=== PATIENT | female | born 1945 | race Caucasian/White ===

== ENCOUNTER 2019-06-07 05:20 | Inpatient (IN) ==
[2019-06-07] MEDS ORDERED: cefOXitin 1,000 MG in SYRINGE 1 EACH IV ONE (06:00)
[2019-06-07] MEDS ORDERED: LIDOCAINE 1%/EPI INJ 20 ML VIAL ONE (06:28)
[2019-06-07] MEDS ORDERED: BUPIVACAINE MPF 0.25% 30 ML VIAL ONE (06:28)
[2019-06-07] MEDS ORDERED: TISSUE ADHESIVE 1 EACH APPLICATOR TOP ONE (06:28)
[2019-06-07] MEDS ORDERED: INDOCYANINE GREEN 25 MG VIAL IV ONE (06:28)
[2019-06-07] MEDS ORDERED: ACETAMINOPHEN 500 MG TABLET PO ONE (06:34)
[2019-06-07] MEDS ORDERED: FAMOTIDINE 20 MG TABLET PO ONE (06:34)
[2019-06-07] MEDS ORDERED: DIAZEPAM 5 MG TABLET PO ONE (06:34)
[2019-06-07] MEDS ORDERED: RANITIDINE 150 MG TABLET ONE (06:50)
[2019-06-07] MEDS ORDERED: ACETAMINOPHEN 500 MG TABLET ONE (06:50)
[2019-06-07] MEDS ORDERED: DIAZEPAM 5 MG TABLET ONE (06:50)
[2019-06-07] MEDS ORDERED: RANITIDINE 150 MG TABLET PO ONE (07:00)
[2019-06-07] MEDS ORDERED: LACTATED RINGERS 1,000 ML IV SCH (07:00)
[2019-06-07] MEDS ORDERED: PHENYLEPHRINE 1 MG/10 ML SYRINGE IV ONE ×2 (12:30→13:21)
[2019-06-07] MEDS ORDERED: PHENYLEPHRINE DRIP 20 MG/250 ML PREMIX IV ONE (12:30)
[2019-06-07] MEDS ORDERED: HYDROmorphone 2 MG/1 ML VIAL IV PRN (13:14)
[2019-06-07] MEDS ORDERED: ONDANSETRON 4 MG/2 ML VIAL IV PRN (13:14)
[2019-06-07] MEDS ORDERED: SEVOFLURANE 1 UNIT/15 MINUTE INH ONE (13:18)
[2019-06-07] MEDS ORDERED: LIDOCAINE 2% 5 ML VIAL ONE (13:19)
[2019-06-07] MEDS ORDERED: propofoL 200 MG/20 ML VIAL IV ONE (13:19)
[2019-06-07] MEDS ORDERED: fentaNYL 100 MCG/2 ML VIAL ONE (13:20)
[2019-06-07] MEDS ORDERED: GLYCOPYRROLATE 0.4 MG/2 ML VIAL ONE (13:20)
[2019-06-07] MEDS ORDERED: MIDAZOLAM 2 MG/2 ML VIAL ONE (13:20)
[2019-06-07] MEDS ORDERED: ePHEDrine 50 MG/ML AMP ONE (13:20)
[2019-06-07] MEDS ORDERED: DEXAMETHASONE 4 MG/1 ML VIAL ONE (13:20)
[2019-06-07] MEDS ORDERED: ROCURONIUM 100 MG/10 ML VIAL IV ONE (13:21)
[2019-06-07] MEDS ORDERED: NEOSTIGMINE 10 MG/10 ML VIAL ONE (13:21)
[2019-06-07] MEDS: DEXTROSE 5% LACTATED RINGERS 1,000 ML IV SCH ×2 (14:13→21:38)
[2019-06-07 14:47] LABS: Hematocrit 28.9 VOL% (35.7-47.0); Hemoglobin 8.8 GM/DL (12.0-16.0)
[2019-06-07] MEDS: HYDROmorphone 2 MG/1 ML VIAL IV PRN ×3 (15:20→21:38)
[2019-06-07] MEDS: cefOXitin 2,000 MG in SYRINGE 1 EACH IV SCH ×2 (17:03→23:05)
[2019-06-07 21:25] LABS: Hematocrit 26.6 VOL% (35.7-47.0); Hemoglobin 7.9 GM/DL (12.0-16.0)
[2019-06-07] MEDS: ALVIMOPAN 12 MG CAPSULE PO SCH (23:58)
[2019-06-08] MEDS: HYDROmorphone 2 MG/1 ML VIAL IV PRN ×3 (04:52→20:53)
[2019-06-08] MEDS: cefOXitin 2,000 MG in SYRINGE 1 EACH IV SCH (04:57)
[2019-06-08 06:18] LABS: Eosinophils # 0.2 10*3/uL (0.0-0.87); Eosinophils % 4.2 % (0.00-10.9); Hematocrit 25.4 VOL% (35.7-47.0); Hemoglobin 7.4 GM/DL (12.0-16.0); Immature Granulocytes % 0.2 %; Immature Granulocytes Absolute 0.01 #; Lymphocytes # 0.5 10*3/uL (1.4-4.0); Lymphocytes % 12.2 % (21.3-54.2); Mean Corpuscular HGB Conc 29.1 GM/DL (32-36); Mean Corpuscular Volume 112.4 FL (87-102); Mean Platelet Volume 9.6 FL (9.6-12.0); Monocytes % 9.9 % (1.7-12.7); Neutrophils % 73.5 % (38.7-73.9); Platelet Count 129 T/CUMM (130-400); Red Blood Count 2.26 MC/CUMM (3.8-5.5); Red Cell Distribution Width 13.5 % (9.3-17.3); White Blood Count 4.3 T/CUMM (4-12)
[2019-06-08] MEDS: DEXTROSE 5% LACTATED RINGERS 1,000 ML IV SCH ×3 (06:23→21:58)
[2019-06-08 06:38] LABS: Macrocytosis Slight
[2019-06-08 06:39] LABS: Ovalocytes Slight
[2019-06-08 06:40] LABS: Platelet Estimate Adequate
[2019-06-08 06:43] LABS: Alanine Aminotransferase 29 U/L (13-56); Albumin 2.1 G/DL (3.4-5.0); Alkaline Phosphatase 76 U/L (45-117); Aspartate Amino Transferase 41 U/L (0-37); Bilirubin,Total < 0.39 MG/DL (0.2-1.0); Blood Urea Nitrogen 17 MG/DL (7-18); Calcium 7.6 MG/DL (8.5-10.1); Estimated Glom Filtration Rate 26 ML/MIN; Glucose 113 MG/DL (74-106); Osmolality,Calculated 283.3 MOS/KG (273-304); Total Protein 4.7 G/DL (6.4-8.3)
[2019-06-08] MEDS: PANTOPRAZOLE 40 MG TABLET PO SCH (08:47)
[2019-06-08] MEDS: GABAPENTIN 600 MG TABLET PO SCH ×4 (08:47→20:54)
[2019-06-08] MEDS: ALVIMOPAN 12 MG CAPSULE PO SCH ×2 (08:47→20:54)
[2019-06-08] MEDS: CITALOPRAM 40 MG TABLET PO SCH (08:47)
[2019-06-08] MEDS ORDERED: ALBUTEROL 2.5 MG/3 ML NEB RESP TX PRN (11:00)
[2019-06-08 13:23] LABS: Hematocrit 25.4 VOL% (35.7-47.0); Hemoglobin 7.5 GM/DL (12.0-16.0)
[2019-06-09 05:31] LABS: Eosinophils # 0.3 10*3/uL (0.0-0.87); Eosinophils % 7.8 % (0.00-10.9); Hemoglobin 6.7 GM/DL (12.0-16.0); Immature Granulocytes % 0.3 %; Immature Granulocytes Absolute 0.01 #; Lymphocytes # 0.9 10*3/uL (1.4-4.0); Lymphocytes % 23.5 % (21.3-54.2); Mean Corpuscular HGB Conc 29.1 GM/DL (32-36); Mean Corpuscular Volume 114.4 FL (87-102); Neutrophils % 56.4 % (38.7-73.9); Platelet Count 122 T/CUMM (130-400); Red Blood Count 2.01 MC/CUMM (3.8-5.5); Red Cell Distribution Width 13.5 % (9.3-17.3); White Blood Count 3.7 T/CUMM (4-12)
[2019-06-09 05:45] LABS: Calcium 7.5 MG/DL (8.5-10.1); Osmolality,Calculated 291.6 MOS/KG (273-304)
[2019-06-09 06:34] LABS: Eosinophils 12 % (0-10); Lymphocytes 13 % (20-55); Platelet Estimate Normal; Segmented Neutrophils 68 % (50-85); Total Cells Counted 100
[2019-06-09] MEDS: DEXTROSE 5% LACTATED RINGERS 1,000 ML IV SCH (06:34)
[2019-06-09 06:35] LABS: Anisocytosis Slight; Macrocytosis 1+
[2019-06-09] MEDS: LEVOTHYROXINE 125 MCG TABLET PO SCH (06:36)
[2019-06-09] MEDS ORDERED: SODIUM CHLORIDE 0.9% 1,000 ML IV PRN (08:04)
[2019-06-09] MEDS: CITALOPRAM 40 MG TABLET PO SCH (09:58)
[2019-06-09] MEDS: GABAPENTIN 600 MG TABLET PO SCH ×4 (09:59→21:21)
[2019-06-09] MEDS: PANTOPRAZOLE 40 MG TABLET PO SCH (09:59)
[2019-06-09] MEDS: ALVIMOPAN 12 MG CAPSULE PO SCH ×2 (09:59→21:21)
[2019-06-09] MEDS: HYDROmorphone 2 MG/1 ML VIAL IV PRN ×3 (10:36→18:30)
[2019-06-10] MEDS: HYDROmorphone 2 MG/1 ML VIAL IV PRN ×2 (00:44→21:23)
[2019-06-10] MEDS: DEXTROSE 5% LACTATED RINGERS 1,000 ML IV SCH ×4 (02:58→17:34)
[2019-06-10 05:37] LABS: Hematocrit 30.5 VOL% (35.7-47.0); Hemoglobin 9.2 GM/DL (12.0-16.0)
[2019-06-10] MEDS: LEVOTHYROXINE 125 MCG TABLET PO SCH (06:18)
[2019-06-10] MEDS: PANTOPRAZOLE 40 MG TABLET PO SCH (09:16)
[2019-06-10] MEDS: GABAPENTIN 600 MG TABLET PO SCH ×4 (09:16→21:24)
[2019-06-10] MEDS: CITALOPRAM 40 MG TABLET PO SCH (09:16)
[2019-06-11] MEDS: LEVOTHYROXINE 125 MCG TABLET PO SCH (06:08)
[2019-06-11] MEDS: PANTOPRAZOLE 40 MG TABLET PO SCH (09:15)
[2019-06-11] MEDS: GABAPENTIN 600 MG TABLET PO SCH ×4 (09:15→22:32)
[2019-06-11] MEDS: CITALOPRAM 40 MG TABLET PO SCH (09:15)
[2019-06-11] MEDS: DEXTROSE 5% LACTATED RINGERS 1,000 ML IV SCH ×2 (09:21→13:25)
[2019-06-11] MEDS: ONDANSETRON 4 MG/2 ML VIAL IV PRN (11:15)
[2019-06-12] MEDS: DEXTROSE 5% LACTATED RINGERS 1,000 ML IV SCH ×2 (04:46→10:02)
[2019-06-12] MEDS: LEVOTHYROXINE 125 MCG TABLET PO SCH (06:31)
[2019-06-12 07:55] LABS: Basophils % 1.1 % (0.0-0.8); Eosinophils # 0.3 10*3/uL (0.0-0.87); Hematocrit 28.9 VOL% (35.7-47.0); Hemoglobin 8.7 GM/DL (12.0-16.0); Lymphocytes % 34.8 % (21.3-54.2); Mean Corpuscular HGB Conc 30.1 GM/DL (32-36); Mean Corpuscular Volume 106.3 FL (87-102); Mean Platelet Volume 9.7 FL (9.6-12.0); Monocytes % 13.2 % (1.7-12.7); Neutrophils % 39.9 % (38.7-73.9); Platelet Count 142 T/CUMM (130-400); Red Blood Count 2.72 MC/CUMM (3.8-5.5); Red Cell Distribution Width 14.2 % (9.3-17.3); White Blood Count 2.7 T/CUMM (4-12)
[2019-06-12] MEDS: CITALOPRAM 40 MG TABLET PO SCH (08:16)
[2019-06-12] MEDS: PANTOPRAZOLE 40 MG TABLET PO SCH (08:16)
[2019-06-12] MEDS: GABAPENTIN 600 MG TABLET PO SCH ×2 (08:16→13:43)
[2019-06-12 08:24] LABS: Anisocytosis Slight; Band Neutrophils 8 % (0-10); Eosinophils 11 % (0-10); Lymphocytes 34 % (20-55); Macrocytosis Slight; Platelet Estimate Adequate; Segmented Neutrophils 38 % (50-85); Total Cells Counted 100
[2019-06-12 08:25] LABS: Atypical Lymphocytes Few
[2019-06-12 08:41] VITALS: BP 149/64
[2019-06-12] MEDS: ONDANSETRON 4 MG/2 ML VIAL IV PRN (10:31)
== END 2019-06-12 13:25 | disposition home or self-care (01) | DRG 330 ==
LOC: N.OR 05:20 → N.SDSINP 05:21 → N.ICU 13:45 → N.3E 06-10 13:34
PROVIDERS: ADMIT Surgery; ATTEND Surgery

== ENCOUNTER 2019-06-29 19:05 | Inpatient (IN) ==
[2019-06-29] MEDS ORDERED: SODIUM CHLORIDE 0.9% 1,000 ML IV STA (19:37)
[2019-06-29 19:52] LABS: Basophils # 0.1 10*3/uL (0.0-0.2); Basophils % 0.5 % (0.0-0.8); Eosinophils # 0.6 10*3/uL (0.0-0.87); Eosinophils % 6.3 % (0.00-10.9); Hematocrit 30.1 VOL% (35.7-47.0); Hemoglobin 9.2 GM/DL (12.0-16.0); Immature Granulocytes % 0.7 %; Immature Granulocytes Absolute 0.07 #; Lymphocytes # 1.6 10*3/uL (1.4-4.0); Lymphocytes % 16.4 % (21.3-54.2); Mean Corpuscular HGB Conc 30.6 GM/DL (32-36); Mean Corpuscular Volume 105.2 FL (87-102); Mean Platelet Volume 10.4 FL (9.6-12.0); Neutrophils % 70.1 % (38.7-73.9); Platelet Count 245 T/CUMM (130-400); Red Blood Count 2.86 MC/CUMM (3.8-5.5); Red Cell Distribution Width 14.3 % (9.3-17.3); White Blood Count 9.6 T/CUMM (4-12)
[2019-06-29 20:00] LABS: Alanine Aminotransferase < 9 U/L (13-56); Albumin 1.7 G/DL (3.4-5.0); Alkaline Phosphatase 74 U/L (45-117); Aspartate Amino Transferase 15 U/L (0-37); Blood Urea Nitrogen 18 MG/DL (7-18); Calcium 7.3 MG/DL (8.5-10.1); Estimated Glom Filtration Rate 40 ML/MIN; Glucose 101 MG/DL (74-106); Osmolality,Calculated 278.5 MOS/KG (273-304); Total Protein 5.2 G/DL (6.4-8.3); Troponin I < 0.015 NG/ML (0.00-0.045)
[2019-06-29 20:31] LABS: PT Patient Result 10.6 SECS (9.6-12.2)
[2019-06-29 21:06] LABS: Apearance,Urine CLEAR (Clear); Bilirubin,Urine Negative (Negative); Blood, Urine Negative (Negative); Glucose,Urine (UA) Negative (Negative); Ketones,Urine Negative (Negative); Nitrite,Urine Negative (Negative); Protein,Urine Negative; Squamous Epithelial Cell,Urine Occasional /HPF (0-10); Urine Color Yellow (Yellow); Urine Specific Gravity 1.047 (1.001-1.035)
[2019-06-29] MEDS ORDERED: metroNIDAZOLE INJ 500 MG in PREMIX 1 EACH IV STA (21:13)
[2019-06-29] MEDS ORDERED: cefTRIAXone 1,000 MG in SODIUM CHLORIDE 0.9% 100 ML IV STA (21:13)
[2019-06-30] MEDS: HYDROmorphone 2 MG/1 ML VIAL IV PRN ×3 (00:33→20:19)
[2019-06-30] MEDS: cefOXitin 2,000 MG in SYRINGE 1 EACH IV SCH ×5 (02:32→20:12)
[2019-06-30 04:41] LABS: Basophils % 0.4 % (0.0-0.8); Eosinophils # 0.6 10*3/uL (0.0-0.87); Eosinophils % 7.1 % (0.00-10.9); Hematocrit 29.2 VOL% (35.7-47.0); Hemoglobin 8.8 GM/DL (12.0-16.0); Immature Granulocytes % 0.6 %; Immature Granulocytes Absolute 0.05 #; Lymphocytes # 1.6 10*3/uL (1.4-4.0); Lymphocytes % 17.5 % (21.3-54.2); Mean Corpuscular HGB Conc 30.1 GM/DL (32-36); Mean Corpuscular Volume 106.2 FL (87-102); Mean Platelet Volume 9.9 FL (9.6-12.0); Monocytes % 5.5 % (1.7-12.7); Neutrophils % 68.9 % (38.7-73.9); Platelet Count 244 T/CUMM (130-400); Red Blood Count 2.75 MC/CUMM (3.8-5.5); Red Cell Distribution Width 14.5 % (9.3-17.3); White Blood Count 8.9 T/CUMM (4-12)
[2019-06-30 05:15] LABS: Alanine Aminotransferase < 6 U/L (13-56); Albumin 1.6 G/DL (3.4-5.0); Alkaline Phosphatase 67 U/L (45-117); Aspartate Amino Transferase 12 U/L (0-37); Bilirubin,Total < 0.39 MG/DL (0.2-1.0); Blood Urea Nitrogen 16 MG/DL (7-18); Calcium 7.4 MG/DL (8.5-10.1); Estimated Glom Filtration Rate 48 ML/MIN; Glucose 96 MG/DL (74-106); Osmolality,Calculated 281.3 MOS/KG (273-304); Total Protein 4.8 G/DL (6.4-8.3)
[2019-06-30] MEDS: DEXTROSE 5% LACTATED RINGERS 1,000 ML IV SCH ×3 (07:01→14:23)
[2019-06-30] MEDS: PANTOPRAZOLE 40 MG TABLET PO SCH (09:02)
[2019-06-30] MEDS ORDERED: ALBUTEROL 2.5 MG/3 ML NEB RESP TX PRN (09:06)
[2019-06-30] MEDS ORDERED: DIAZEPAM 5 MG TABLET PO ONE (09:35)
[2019-06-30] MEDS: ENOXAPARIN 40 MG/0.4 ML SYRINGE SUBCUT SCH (16:39)
[2019-07-01] MEDS: DEXTROSE 5% LACTATED RINGERS 1,000 ML IV SCH ×4 (03:20→23:11)
[2019-07-01] MEDS: cefOXitin 2,000 MG in SYRINGE 1 EACH IV SCH ×4 (03:21→19:47)
[2019-07-01] MEDS: hydroCHLOROthiazide 25 MG TABLET PO SCH (08:37)
[2019-07-01] MEDS: amLODIPine 2.5 MG TABLET PO SCH (08:37)
[2019-07-01] MEDS: ASPIRIN EC 81 MG TABLET PO SCH (08:37)
[2019-07-01] MEDS: PANTOPRAZOLE 40 MG TABLET PO SCH (08:37)
[2019-07-01 08:44] LABS: Basophils % 0.3 % (0.0-0.8); Eosinophils # 0.8 10*3/uL (0.0-0.87); Hematocrit 30.1 VOL% (35.7-47.0); Hemoglobin 9.1 GM/DL (12.0-16.0); Immature Granulocytes % 0.6 %; Immature Granulocytes Absolute 0.06 #; Lymphocytes % 9.7 % (21.3-54.2); Mean Corpuscular HGB Conc 30.2 GM/DL (32-36); Mean Corpuscular Volume 105.6 FL (87-102); Mean Platelet Volume 9.5 FL (9.6-12.0); Monocytes % 5.5 % (1.7-12.7); Neutrophils % 76.9 % (38.7-73.9); Platelet Count 211 T/CUMM (130-400); Red Blood Count 2.85 MC/CUMM (3.8-5.5); Red Cell Distribution Width 14.2 % (9.3-17.3); White Blood Count 10.7 T/CUMM (4-12)
[2019-07-01 09:05] LABS: Calcium 7.7 MG/DL (8.5-10.1); Osmolality,Calculated 275.5 MOS/KG (273-304)
[2019-07-01] MEDS: ONDANSETRON 4 MG/2 ML VIAL IV PRN ×2 (12:42→19:48)
[2019-07-01] MEDS: ENOXAPARIN 40 MG/0.4 ML SYRINGE SUBCUT SCH (20:39)
[2019-07-02] MEDS: ONDANSETRON 4 MG/2 ML VIAL IV PRN ×4 (00:18→22:00)
[2019-07-02] MEDS: HYDROmorphone 2 MG/1 ML VIAL IV PRN ×3 (00:51→21:58)
[2019-07-02] MEDS: cefOXitin 2,000 MG in SYRINGE 1 EACH IV SCH ×4 (03:29→21:59)
[2019-07-02] MEDS: DEXTROSE 5% LACTATED RINGERS 1,000 ML IV SCH ×4 (05:09→23:48)
[2019-07-02 07:48] LABS: Basophils # 0.1 10*3/uL (0.0-0.2); Basophils % 0.6 % (0.0-0.8); Eosinophils # 0.7 10*3/uL (0.0-0.87); Eosinophils % 7.5 % (0.00-10.9); Hemoglobin 9.4 GM/DL (12.0-16.0); Immature Granulocytes % 0.4 %; Immature Granulocytes Absolute 0.04 #; Lymphocytes # 1.3 10*3/uL (1.4-4.0); Lymphocytes % 13.9 % (21.3-54.2); Mean Corpuscular HGB Conc 30.3 GM/DL (32-36); Mean Corpuscular Volume 105.4 FL (87-102); Mean Platelet Volume 9.9 FL (9.6-12.0); Monocytes % 6.8 % (1.7-12.7); Neutrophils % 70.8 % (38.7-73.9); Platelet Count 202 T/CUMM (130-400); Red Blood Count 2.94 MC/CUMM (3.8-5.5); Red Cell Distribution Width 14.2 % (9.3-17.3)
[2019-07-02] MEDS: amLODIPine 2.5 MG TABLET PO SCH (09:24)
[2019-07-02] MEDS: PANTOPRAZOLE 40 MG TABLET PO SCH (09:24)
[2019-07-02] MEDS: hydroCHLOROthiazide 25 MG TABLET PO SCH (09:24)
[2019-07-02] MEDS: ASPIRIN EC 81 MG TABLET PO SCH (09:24)
[2019-07-02] MEDS: ENOXAPARIN 40 MG/0.4 ML SYRINGE SUBCUT SCH (21:59)
[2019-07-03] MEDS: ONDANSETRON 4 MG/2 ML VIAL IV PRN ×3 (02:41→17:55)
[2019-07-03] MEDS: cefOXitin 2,000 MG in SYRINGE 1 EACH IV SCH ×4 (02:44→20:47)
[2019-07-03] MEDS ORDERED: PROMETHAZINE INJ 25 MG in SODIUM CHLORIDE 0.9% 50 ML IV PRN (07:53)
[2019-07-03] MEDS: hydroCHLOROthiazide 25 MG TABLET PO SCH (09:34)
[2019-07-03] MEDS: PANTOPRAZOLE 40 MG TABLET PO SCH (09:34)
[2019-07-03] MEDS: amLODIPine 2.5 MG TABLET PO SCH (09:34)
[2019-07-03] MEDS: ASPIRIN EC 81 MG TABLET PO SCH (09:34)
[2019-07-03] MEDS ORDERED: PROMETHAZINE 25 MG/1 ML VIAL IM PRN (10:50)
[2019-07-03] MEDS: PROMETHAZINE 25 MG/1 ML VIAL IM PRN ×2 (11:19→20:48)
[2019-07-03] MEDS: DEXTROSE 5% LACTATED RINGERS 1,000 ML IV SCH ×3 (11:19→23:26)
[2019-07-03] MEDS: ENOXAPARIN 40 MG/0.4 ML SYRINGE SUBCUT SCH (20:47)
[2019-07-04] MEDS: cefOXitin 2,000 MG in SYRINGE 1 EACH IV SCH ×4 (01:55→19:57)
[2019-07-04] MEDS: DEXTROSE 5% LACTATED RINGERS 1,000 ML IV SCH ×2 (05:42→14:20)
[2019-07-04] MEDS: amLODIPine 2.5 MG TABLET PO SCH (09:32)
[2019-07-04] MEDS: hydroCHLOROthiazide 25 MG TABLET PO SCH (09:32)
[2019-07-04] MEDS: PANTOPRAZOLE 40 MG TABLET PO SCH (09:32)
[2019-07-04] MEDS: ASPIRIN EC 81 MG TABLET PO SCH (09:32)
[2019-07-04] MEDS: HYDROmorphone 2 MG/1 ML VIAL IV PRN ×2 (09:34→19:59)
[2019-07-04] MEDS: PROMETHAZINE 25 MG/1 ML VIAL IM PRN ×2 (14:19→19:58)
[2019-07-04] MEDS: ENOXAPARIN 40 MG/0.4 ML SYRINGE SUBCUT SCH (20:23)
[2019-07-05] MEDS: DEXTROSE 5% LACTATED RINGERS 1,000 ML IV SCH ×4 (02:49→18:50)
[2019-07-05] MEDS: cefOXitin 2,000 MG in SYRINGE 1 EACH IV SCH ×4 (02:51→21:14)
[2019-07-05 05:42] LABS: Basophils # 0.1 10*3/uL (0.0-0.2); Basophils % 0.9 % (0.0-0.8); Eosinophils # 0.7 10*3/uL (0.0-0.87); Eosinophils % 8.7 % (0.00-10.9); Hematocrit 31.5 VOL% (35.7-47.0); Hemoglobin 9.6 GM/DL (12.0-16.0); Immature Granulocytes % 0.5 %; Immature Granulocytes Absolute 0.04 #; Lymphocytes # 1.4 10*3/uL (1.4-4.0); Lymphocytes % 17.7 % (21.3-54.2); Mean Corpuscular HGB Conc 30.5 GM/DL (32-36); Mean Corpuscular Volume 105.4 FL (87-102); Mean Platelet Volume 10.2 FL (9.6-12.0); Monocytes % 7.8 % (1.7-12.7); Neutrophils % 64.4 % (38.7-73.9); Platelet Count 211 T/CUMM (130-400); Red Blood Count 2.99 MC/CUMM (3.8-5.5); Red Cell Distribution Width 14.1 % (9.3-17.3); White Blood Count 7.8 T/CUMM (4-12)
[2019-07-05] MEDS: amLODIPine 2.5 MG TABLET PO SCH (09:40)
[2019-07-05] MEDS: PANTOPRAZOLE 40 MG TABLET PO SCH (09:40)
[2019-07-05] MEDS: hydroCHLOROthiazide 25 MG TABLET PO SCH (09:40)
[2019-07-05] MEDS: ASPIRIN EC 81 MG TABLET PO SCH (09:40)
[2019-07-05] MEDS: PROMETHAZINE 25 MG/1 ML VIAL IM PRN ×2 (10:45→21:14)
[2019-07-05] MEDS: ONDANSETRON 4 MG/2 ML VIAL IV PRN (13:44)
[2019-07-05] MEDS: HYDROmorphone 2 MG/1 ML VIAL IV PRN ×2 (13:54→21:14)
[2019-07-05] MEDS: ENOXAPARIN 40 MG/0.4 ML SYRINGE SUBCUT SCH (21:15)
[2019-07-06] MEDS: cefOXitin 2,000 MG in SYRINGE 1 EACH IV SCH ×4 (03:08→20:55)
[2019-07-06] MEDS: DEXTROSE 5% LACTATED RINGERS 1,000 ML IV SCH ×3 (03:09→20:50)
[2019-07-06] MEDS: ASPIRIN EC 81 MG TABLET PO SCH (09:35)
[2019-07-06] MEDS: hydroCHLOROthiazide 25 MG TABLET PO SCH (09:35)
[2019-07-06] MEDS: PROMETHAZINE 25 MG/1 ML VIAL IM PRN ×2 (09:35→17:24)
[2019-07-06] MEDS: PANTOPRAZOLE 40 MG TABLET PO SCH (09:35)
[2019-07-06] MEDS: amLODIPine 2.5 MG TABLET PO SCH (09:35)
[2019-07-06] MEDS: HYDROmorphone 2 MG/1 ML VIAL IV PRN ×2 (12:01→21:24)
[2019-07-06] MEDS: ONDANSETRON 4 MG/2 ML VIAL IV PRN ×2 (12:01→21:46)
[2019-07-06] MEDS: ENOXAPARIN 40 MG/0.4 ML SYRINGE SUBCUT SCH (20:55)
[2019-07-07] MEDS: HYDROmorphone 2 MG/1 ML VIAL IV PRN ×3 (02:55→21:07)
[2019-07-07] MEDS: ONDANSETRON 4 MG/2 ML VIAL IV PRN ×3 (02:58→21:09)
[2019-07-07] MEDS: cefOXitin 2,000 MG in SYRINGE 1 EACH IV SCH ×3 (03:07→15:29)
[2019-07-07] MEDS: DEXTROSE 5% LACTATED RINGERS 1,000 ML IV SCH ×2 (07:34→10:56)
[2019-07-07] MEDS: hydroCHLOROthiazide 25 MG TABLET PO SCH (09:42)
[2019-07-07] MEDS: ASPIRIN EC 81 MG TABLET PO SCH (09:42)
[2019-07-07] MEDS: amLODIPine 2.5 MG TABLET PO SCH (09:42)
[2019-07-07] MEDS: PANTOPRAZOLE 40 MG TABLET PO SCH (09:42)
[2019-07-07] MEDS: PROMETHAZINE 25 MG/1 ML VIAL IM PRN (15:35)
[2019-07-07] MEDS: ENOXAPARIN 40 MG/0.4 ML SYRINGE SUBCUT SCH (21:09)
[2019-07-08] MEDS: DEXTROSE 5% LACTATED RINGERS 1,000 ML IV SCH ×5 (02:37→18:15)
[2019-07-08] MEDS: ONDANSETRON 4 MG/2 ML VIAL IV PRN ×3 (05:10→17:35)
[2019-07-08] MEDS: HYDROmorphone 2 MG/1 ML VIAL IV PRN ×3 (05:27→18:31)
[2019-07-08] MEDS: hydroCHLOROthiazide 25 MG TABLET PO SCH (09:23)
[2019-07-08] MEDS: amLODIPine 2.5 MG TABLET PO SCH (09:23)
[2019-07-08] MEDS: PROMETHAZINE 25 MG/1 ML VIAL IM PRN ×2 (09:23→18:37)
[2019-07-08] MEDS: PANTOPRAZOLE 40 MG TABLET PO SCH (09:23)
[2019-07-08] MEDS: ASPIRIN EC 81 MG TABLET PO SCH (09:23)
[2019-07-08] MEDS: ENOXAPARIN 40 MG/0.4 ML SYRINGE SUBCUT SCH (20:58)
[2019-07-09] MEDS: DEXTROSE 5% LACTATED RINGERS 1,000 ML IV SCH ×3 (02:04→18:46)
[2019-07-09] MEDS: ONDANSETRON 4 MG/2 ML VIAL IV PRN ×3 (06:29→23:38)
[2019-07-09] MEDS: HYDROmorphone 2 MG/1 ML VIAL IV PRN ×4 (06:32→23:39)
[2019-07-09 08:17] LABS: Basophils % 0.8 % (0.0-0.8); Eosinophils # 0.3 10*3/uL (0.0-0.87); Eosinophils % 6.5 % (0.00-10.9); Hematocrit 30.8 VOL% (35.7-47.0); Hemoglobin 9.4 GM/DL (12.0-16.0); Immature Granulocytes % 0.6 %; Immature Granulocytes Absolute 0.03 #; Lymphocytes # 1.1 10*3/uL (1.4-4.0); Lymphocytes % 20.1 % (21.3-54.2); Mean Corpuscular HGB Conc 30.5 GM/DL (32-36); Mean Corpuscular Volume 104.8 FL (87-102); Mean Platelet Volume 9.6 FL (9.6-12.0); Monocytes % 5.9 % (1.7-12.7); Neutrophils % 66.1 % (38.7-73.9); Platelet Count 181 T/CUMM (130-400); Red Blood Count 2.94 MC/CUMM (3.8-5.5); Red Cell Distribution Width 14.5 % (9.3-17.3); White Blood Count 5.3 T/CUMM (4-12)
[2019-07-09 08:38] LABS: Albumin 1.6 G/DL (3.4-5.0); Bilirubin,Total 0.8 MG/DL (0.2-1.0); Calcium 8.2 MG/DL (8.5-10.1); Osmolality,Calculated 272.7 MOS/KG (273-304); Total Protein 5.2 G/DL (6.4-8.3)
[2019-07-09] MEDS: ASPIRIN EC 81 MG TABLET PO SCH (09:12)
[2019-07-09] MEDS: PANTOPRAZOLE 40 MG TABLET PO SCH (09:13)
[2019-07-09] MEDS: cefOXitin 1,000 MG in SYRINGE 1 EACH IV SCH ×3 (09:13→21:35)
[2019-07-09] MEDS: hydroCHLOROthiazide 25 MG TABLET PO SCH (09:13)
[2019-07-09] MEDS: amLODIPine 2.5 MG TABLET PO SCH (09:13)
[2019-07-09] MEDS: ENOXAPARIN 40 MG/0.4 ML SYRINGE SUBCUT SCH (21:33)
[2019-07-10] MEDS: DEXTROSE 5% LACTATED RINGERS 1,000 ML IV SCH (01:38)
[2019-07-10] MEDS: cefOXitin 1,000 MG in SYRINGE 1 EACH IV SCH ×4 (03:28→20:48)
[2019-07-10] MEDS: ONDANSETRON 4 MG/2 ML VIAL IV PRN ×4 (03:34→18:00)
[2019-07-10] MEDS: PROMETHAZINE 25 MG/1 ML VIAL IM PRN (06:19)
[2019-07-10] MEDS: HYDROmorphone 2 MG/1 ML VIAL IV PRN ×3 (08:50→18:00)
[2019-07-10] MEDS: hydroCHLOROthiazide 25 MG TABLET PO SCH (09:54)
[2019-07-10] MEDS: amLODIPine 2.5 MG TABLET PO SCH (09:54)
[2019-07-10] MEDS: ASPIRIN EC 81 MG TABLET PO SCH (09:54)
[2019-07-10] MEDS: PANTOPRAZOLE 40 MG TABLET PO SCH (09:55)
[2019-07-10] MEDS: ENOXAPARIN 40 MG/0.4 ML SYRINGE SUBCUT SCH (20:45)
[2019-07-11] MEDS: ONDANSETRON 4 MG/2 ML VIAL IV PRN ×3 (00:29→12:17)
[2019-07-11] MEDS: HYDROmorphone 2 MG/1 ML VIAL IV PRN ×2 (01:03→08:24)
[2019-07-11] MEDS: cefOXitin 1,000 MG in SYRINGE 1 EACH IV SCH ×2 (02:49→09:02)
[2019-07-11] MEDS: DEXTROSE 5% LACTATED RINGERS 1,000 ML IV SCH (07:13)
[2019-07-11] MEDS: ASPIRIN EC 81 MG TABLET PO SCH (09:34)
[2019-07-11] MEDS: hydroCHLOROthiazide 25 MG TABLET PO SCH (09:34)
[2019-07-11] MEDS: amLODIPine 2.5 MG TABLET PO SCH (09:35)
[2019-07-11] MEDS: PANTOPRAZOLE 40 MG TABLET PO SCH (09:36)
[2019-07-11 11:51] VITALS: BP 122/61
== END 2019-07-11 13:32 | DRG 856 ==
LOC: EDBD → EDUNIT# → N.ED 19:05 → N.EDINP 22:04 → N.3E 22:46
PROVIDERS: ADMIT Surgery; ATTEND Surgery

== ENCOUNTER 2019-07-15 13:59 | Inpatient (IN) ==
[2019-07-15] MEDS ORDERED: SODIUM CHLORIDE 0.9% 1,000 ML IV STA (14:35)
[2019-07-15] MEDS ORDERED: metroNIDAZOLE INJ 500 MG in PREMIX 1 EACH IV STA (14:35)
[2019-07-15] MEDS ORDERED: ONDANSETRON 4 MG/2 ML VIAL IV STA (14:35)
[2019-07-15] MEDS ORDERED: cefTRIAXone 2,000 MG in SODIUM CHLORIDE 0.9% 100 ML IV STA (14:35)
[2019-07-15 14:52] LABS: Basophils % 0.2 % (0.0-0.8); Eosinophils % 0.2 % (0.00-10.9); Hemoglobin 9.4 GM/DL (12.0-16.0); Immature Granulocytes % 1.3 %; Immature Granulocytes Absolute 0.15 #; Lymphocytes # 0.8 10*3/uL (1.4-4.0); Lymphocytes % 7.1 % (21.3-54.2); Mean Corpuscular HGB Conc 31.3 GM/DL (32-36); Mean Corpuscular Volume 101.7 FL (87-102); Mean Platelet Volume 10.4 FL (9.6-12.0); Monocytes % 3.6 % (1.7-12.7); Neutrophils % 87.6 % (38.7-73.9); Platelet Count 179 T/CUMM (130-400); Red Blood Count 2.95 MC/CUMM (3.8-5.5); Red Cell Distribution Width 14.9 % (9.3-17.3); White Blood Count 11.8 T/CUMM (4-12)
[2019-07-15 14:58] LABS: INR 0.9; PT Patient Result 10.2 SECS (9.6-12.2); Partial Thromboplastin Time 24.7 SECS (20.8-36.0)
[2019-07-15 15:13] LABS: Albumin 2.5 G/DL (3.4-5.0); Bilirubin,Total 0.4 MG/DL (0.2-1.0); Calcium 7.7 MG/DL (8.5-10.1); Osmolality,Calculated 286.8 MOS/KG (273-304); Total Protein 5.9 G/DL (6.4-8.3)
[2019-07-15 15:14] LABS: Troponin I < 0.015 NG/ML (0.00-0.045)
[2019-07-15 17:09] LABS: Apearance,Urine CLEAR (Clear); Bacteria,Urine Occasional /HPF (Few); Bilirubin,Urine Negative (Negative); Blood, Urine Negative (Negative); Glucose,Urine (UA) Negative (Negative); Ketones,Urine Negative (Negative); Nitrite,Urine Negative (Negative); Protein,Urine Negative; RBC,Urine 1 /HPF (0-4); Squamous Epithelial Cell,Urine Occasional /HPF (0-10); Urine Specific Gravity 1.017 (1.001-1.035); WBC,Urine <1 /HPF (0-6)
[2019-07-15 17:10] LABS: Urine Color Yellow (Yellow)
[2019-07-15 17:28] LABS: Barbiturates Screen,Urine Negative (Negative); Benzodiazepines Screen,Urine Positive (Negative); Cannabinoid Screen,Urine Negative (Negative); Opiate Screen,Urine Positive (Negative); Phencyclidine Screen,Urine Negative (Negative)
[2019-07-15] MEDS: LACTATED RINGERS 1,000 ML IV SCH (18:00)
[2019-07-15] MEDS ORDERED: PROMETHAZINE 25 MG/1 ML VIAL IM PRN (18:05)
[2019-07-15] MEDS ORDERED: ALBUTEROL 2.5 MG/3 ML NEB RESP TX PRN (18:05)
[2019-07-15] MEDS ORDERED: HYDROmorphone 2 MG/1 ML VIAL IV PRN (18:05)
[2019-07-15] MEDS ORDERED: LACTATED RINGERS 1,000 ML IV ONE (19:59)
[2019-07-15] MEDS: PIPERACILLIN/TAZOBACTAM 3,375 MG in SODIUM CHLORIDE 0.9% 100 ML IV SCH (20:27)
[2019-07-15] MEDS: GABAPENTIN 600 MG TABLET PO SCH ×2 (20:44→21:11)
[2019-07-15] MEDS: HEPARIN 5,000 UNIT/1 ML VIAL SUBCUT SCH (21:11)
[2019-07-15] MEDS: FERROUS SULFATE 325 MG TABLET PO SCH (21:11)
[2019-07-15] MEDS: tiZANidine 4 MG TABLET PO SCH (21:11)
[2019-07-15] MEDS ORDERED: ALBUMIN 5% 25 GM in PREMIX 1 EACH IV ONE (22:19)
[2019-07-15] MEDS ORDERED: HALOPERIDOL 5 MG/ML AMP IV ONE (22:19)
[2019-07-15] MEDS ORDERED: ALBUMIN 5% 12.5 GM/250 ML VIAL IV ONE (22:21)
[2019-07-16] MEDS ORDERED: LACTATED RINGERS 1,000 ML IV ONE (01:30)
[2019-07-16 01:54] LABS: Basophils % 0.1 % (0.0-0.8); Eosinophils % 0.3 % (0.00-10.9); Hematocrit 22.4 VOL% (35.7-47.0); Immature Granulocytes Absolute 0.09 #; Lymphocytes % 10.4 % (21.3-54.2); Mean Corpuscular HGB Conc 31.3 GM/DL (32-36); Mean Corpuscular Volume 103.2 FL (87-102); Mean Platelet Volume 9.9 FL (9.6-12.0); Neutrophils % 83.2 % (38.7-73.9); Platelet Count 178 T/CUMM (130-400); Red Blood Count 2.17 MC/CUMM (3.8-5.5); Red Cell Distribution Width 15.1 % (9.3-17.3); White Blood Count 9.5 T/CUMM (4-12)
[2019-07-16 02:14] LABS: Calcium 7.5 MG/DL (8.5-10.1); Osmolality,Calculated 280.1 MOS/KG (273-304)
[2019-07-16] MEDS ORDERED: SODIUM CHLORIDE 0.9% 1,000 ML IV PRN (02:23)
[2019-07-16 04:40] LABS: Basophils % 0.1 % (0.0-0.8); Eosinophils % 0.4 % (0.00-10.9); Hematocrit 23.9 VOL% (35.7-47.0); Hemoglobin 7.2 GM/DL (12.0-16.0); Immature Granulocytes % 0.8 %; Immature Granulocytes Absolute 0.07 #; Lymphocytes # 0.9 10*3/uL (1.4-4.0); Lymphocytes % 9.9 % (21.3-54.2); Mean Corpuscular HGB Conc 30.1 GM/DL (32-36); Mean Corpuscular Volume 104.8 FL (87-102); Mean Platelet Volume 10.5 FL (9.6-12.0); Monocytes % 4.7 % (1.7-12.7); Neutrophils % 84.1 % (38.7-73.9); Platelet Count 194 T/CUMM (130-400); Red Blood Count 2.28 MC/CUMM (3.8-5.5); Red Cell Distribution Width 15.1 % (9.3-17.3); White Blood Count 8.9 T/CUMM (4-12)
[2019-07-16 05:11] LABS: Calcium 7.6 MG/DL (8.5-10.1); Osmolality,Calculated 284.7 MOS/KG (273-304)
[2019-07-16] MEDS: LACTATED RINGERS 1,000 ML IV SCH (05:45)
[2019-07-16] MEDS: HEPARIN 5,000 UNIT/1 ML VIAL SUBCUT SCH ×3 (06:30→22:25)
[2019-07-16] MEDS ORDERED: LEVOTHYROXINE 125 MCG TABLET PO SCH (06:30)
[2019-07-16] MEDS ORDERED: FUROSEMIDE 40 MG/4 ML VIAL IV ONE (08:00)
[2019-07-16] MEDS: CALCIUM (CITRATE)/VITAMIN D 200 MG-125 UNIT TABLET PO SCH (08:28)
[2019-07-16] MEDS: ASPIRIN EC 81 MG TABLET PO SCH (08:28)
[2019-07-16] MEDS: CITALOPRAM 40 MG TABLET PO SCH (08:28)
[2019-07-16] MEDS: PANTOPRAZOLE 40 MG TABLET PO SCH (08:29)
[2019-07-16] MEDS: GABAPENTIN 600 MG TABLET PO SCH ×4 (08:29→20:21)
[2019-07-16] MEDS: MULTIVITAMIN (OCUVITE) TABLET PO SCH (08:29)
[2019-07-16] MEDS: tiZANidine 4 MG TABLET PO SCH ×2 (08:29→20:21)
[2019-07-16] MEDS: FERROUS SULFATE 325 MG TABLET PO SCH ×3 (08:29→20:21)
[2019-07-16] MEDS: ASCORBIC ACID 500 MG TABLET PO SCH (08:29)
[2019-07-16] MEDS: PIPERACILLIN/TAZOBACTAM 3,375 MG in SODIUM CHLORIDE 0.9% 100 ML IV SCH ×2 (09:20→20:28)
[2019-07-16] MEDS: DEXTROSE 5% LACTATED RINGERS 1,000 ML IV SCH ×3 (09:22→23:58)
[2019-07-16] MEDS ORDERED: HALOPERIDOL 5 MG/ML AMP IM ONE (14:15)
[2019-07-16 16:13] LABS: % Iron Saturation 18.8 % (18-50)
[2019-07-16 16:34] LABS: Folate 3.8 NG/ML (5.4-24.0); Vitamin B12 402 PG/ML (211-911)
[2019-07-16] MEDS ORDERED: FUROSEMIDE 40 MG/4 ML VIAL ONE (17:12)
[2019-07-16 21:31] LABS: Hematocrit 31.5 VOL% (35.7-47.0)
[2019-07-17] MEDS ORDERED: diphenhydrAMINE 50 MG/1 ML VIAL IV ONE (02:47)
[2019-07-17] MEDS ORDERED: HALOPERIDOL 5 MG/ML AMP IV ONE (02:48)
[2019-07-17 03:59] LABS: Basophils % 0.2 % (0.0-0.8); Eosinophils # 0.1 10*3/uL (0.0-0.87); Eosinophils % 0.6 % (0.00-10.9); Hematocrit 30.8 VOL% (35.7-47.0); Hemoglobin 9.7 GM/DL (12.0-16.0); Immature Granulocytes % 0.4 %; Immature Granulocytes Absolute 0.03 #; Lymphocytes # 0.7 10*3/uL (1.4-4.0); Lymphocytes % 8.4 % (21.3-54.2); Mean Corpuscular HGB Conc 31.5 GM/DL (32-36); Mean Platelet Volume 9.6 FL (9.6-12.0); Monocytes % 5.5 % (1.7-12.7); Neutrophils % 84.9 % (38.7-73.9); Platelet Count 195 T/CUMM (130-400); Red Blood Count 3.08 MC/CUMM (3.8-5.5); Red Cell Distribution Width 16.7 % (9.3-17.3); White Blood Count 8.4 T/CUMM (4-12)
[2019-07-17 04:15] LABS: Calcium 7.9 MG/DL (8.5-10.1); Osmolality,Calculated 288.3 MOS/KG (273-304)
[2019-07-17] MEDS: HEPARIN 5,000 UNIT/1 ML VIAL SUBCUT SCH ×2 (05:52→15:39)
[2019-07-17] MEDS: LEVOTHYROXINE 125 MCG TABLET PO SCH (05:52)
[2019-07-17] MEDS ORDERED: HALOPERIDOL 5 MG/ML AMP IM ONE ×2 (08:39→16:29)
[2019-07-17] MEDS: ASPIRIN EC 81 MG TABLET PO SCH (08:48)
[2019-07-17] MEDS: FERROUS SULFATE 325 MG TABLET PO SCH ×3 (08:48→22:43)
[2019-07-17] MEDS: GABAPENTIN 600 MG TABLET PO SCH ×4 (08:48→22:43)
[2019-07-17] MEDS: CALCIUM (CITRATE)/VITAMIN D 200 MG-125 UNIT TABLET PO SCH (08:48)
[2019-07-17] MEDS: MULTIVITAMIN (OCUVITE) TABLET PO SCH (08:49)
[2019-07-17] MEDS: CITALOPRAM 40 MG TABLET PO SCH (08:49)
[2019-07-17] MEDS: PANTOPRAZOLE 40 MG TABLET PO SCH (08:49)
[2019-07-17] MEDS: ASCORBIC ACID 500 MG TABLET PO SCH (08:49)
[2019-07-17] MEDS: DEXTROSE 5% LACTATED RINGERS 1,000 ML IV SCH ×2 (08:51→18:23)
[2019-07-17] MEDS: tiZANidine 4 MG TABLET PO SCH ×2 (08:51→22:42)
[2019-07-17] MEDS: PIPERACILLIN/TAZOBACTAM 3,375 MG in SODIUM CHLORIDE 0.9% 100 ML IV SCH ×2 (08:51→22:42)
[2019-07-17] MEDS ORDERED: GLUCAGON 1 MG VIAL IM PRN (14:20)
[2019-07-17] MEDS ORDERED: DEXTROSE 10% 250 ML BAG IV PRN (14:20)
[2019-07-17] MEDS ORDERED: FOLIC ACID 1 MG TABLET PO SCH (14:30)
[2019-07-17] MEDS ORDERED: LORazepam 2 MG/1 ML VIAL IV ONE (15:00)
[2019-07-17] MEDS ORDERED: LORazepam 2 MG/1 ML VIAL IM ONE (16:28)
[2019-07-17] MEDS ORDERED: DEXTROSE 10% 1,000 ML IV PRN (17:00)
[2019-07-17] MEDS ORDERED: TRACE ELEMENTS (5) 1 ML, MULTIVITAMIN INJ 10 ML in AMINO ACIDS/DEXT/LYTES 5-15% 1,000 ML IV SCH (17:00)
[2019-07-17] MEDS: INSULIN REGULAR 100 UNIT/ML SUBCUT SCH (17:42)
[2019-07-18] MEDS: INSULIN REGULAR 100 UNIT/ML SUBCUT SCH ×4 (01:29→17:08)
[2019-07-18] MEDS: HEPARIN 5,000 UNIT/1 ML VIAL SUBCUT SCH ×3 (01:31→15:37)
[2019-07-18 06:35] LABS: Prealbumin 8.4 MG/DL (20-40)
[2019-07-18] MEDS: LEVOTHYROXINE 125 MCG TABLET PO SCH (06:37)
[2019-07-18] MEDS ORDERED: ALTEPLASE 2 MG VIAL IV ONE (08:00)
[2019-07-18] MEDS: FERROUS SULFATE 325 MG TABLET PO SCH ×2 (09:25→16:18)
[2019-07-18] MEDS: ASPIRIN EC 81 MG TABLET PO SCH (09:25)
[2019-07-18] MEDS: CITALOPRAM 40 MG TABLET PO SCH (09:25)
[2019-07-18] MEDS: ASCORBIC ACID 500 MG TABLET PO SCH (09:25)
[2019-07-18] MEDS: PANTOPRAZOLE 40 MG TABLET PO SCH (09:25)
[2019-07-18] MEDS: tiZANidine 4 MG TABLET PO SCH (09:25)
[2019-07-18] MEDS: CALCIUM (CITRATE)/VITAMIN D 200 MG-125 UNIT TABLET PO SCH (09:25)
[2019-07-18] MEDS: GABAPENTIN 600 MG TABLET PO SCH ×3 (09:25→18:29)
[2019-07-18] MEDS: PIPERACILLIN/TAZOBACTAM 3,375 MG in SODIUM CHLORIDE 0.9% 100 ML IV SCH ×2 (09:31→20:35)
[2019-07-18] MEDS: FAT EMULSION 20% 250 ML IV SCH (15:41)
[2019-07-18] MEDS: TRACE ELEMENTS (5) 1 ML, MULTIVITAMIN INJ 10 ML in AMINO ACIDS/DEXT/LYTES 5-15% 2,000 ML IV SCH (17:07)
[2019-07-18] MEDS: DEXTROSE 5% LACTATED RINGERS 1,000 ML IV SCH (17:17)
[2019-07-18] MEDS: ZIPRASIDONE 20 MG/1 ML VIAL IM PRN (20:32)
[2019-07-19] MEDS: HEPARIN 5,000 UNIT/1 ML VIAL SUBCUT SCH ×4 (03:53→23:20)
[2019-07-19] MEDS: INSULIN REGULAR 100 UNIT/ML SUBCUT SCH ×5 (03:54→23:21)
[2019-07-19] MEDS: ZIPRASIDONE 20 MG/1 ML VIAL IM PRN (04:03)
[2019-07-19] MEDS: tiZANidine 4 MG TABLET PO SCH ×3 (04:14→20:16)
[2019-07-19] MEDS: GABAPENTIN 600 MG TABLET PO SCH ×5 (04:14→20:16)
[2019-07-19] MEDS: FERROUS SULFATE 325 MG TABLET PO SCH ×4 (04:14→20:16)
[2019-07-19 05:46] LABS: Basophils % 0.7 % (0.0-0.8); Eosinophils # 0.5 10*3/uL (0.0-0.87); Eosinophils % 8.6 % (0.00-10.9); Hematocrit 34.6 VOL% (35.7-47.0); Hemoglobin 10.6 GM/DL (12.0-16.0); Immature Granulocytes Absolute 0.06 #; Lymphocytes # 1.3 10*3/uL (1.4-4.0); Lymphocytes % 21.5 % (21.3-54.2); Mean Corpuscular HGB Conc 30.6 GM/DL (32-36); Mean Corpuscular Volume 101.2 FL (87-102); Mean Platelet Volume 9.8 FL (9.6-12.0); Monocytes % 5.4 % (1.7-12.7); Neutrophils % 62.8 % (38.7-73.9); Platelet Count 183 T/CUMM (130-400); Red Blood Count 3.42 MC/CUMM (3.8-5.5); Red Cell Distribution Width 16.1 % (9.3-17.3)
[2019-07-19 06:14] LABS: Calcium 8.2 MG/DL (8.5-10.1); Osmolality,Calculated 285.4 MOS/KG (273-304)
[2019-07-19] MEDS: PIPERACILLIN/TAZOBACTAM 3,375 MG in SODIUM CHLORIDE 0.9% 100 ML IV SCH ×2 (09:56→20:17)
[2019-07-19] MEDS: CALCIUM (CITRATE)/VITAMIN D 200 MG-125 UNIT TABLET PO SCH (10:03)
[2019-07-19] MEDS: PANTOPRAZOLE 40 MG TABLET PO SCH (10:03)
[2019-07-19] MEDS: ASCORBIC ACID 500 MG TABLET PO SCH (10:03)
[2019-07-19] MEDS: LEVOTHYROXINE 125 MCG TABLET PO SCH (10:03)
[2019-07-19] MEDS: ASPIRIN EC 81 MG TABLET PO SCH (10:04)
[2019-07-19] MEDS: CITALOPRAM 40 MG TABLET PO SCH (10:04)
[2019-07-19] MEDS: FAT EMULSION 20% 250 ML IV SCH (17:11)
[2019-07-19] MEDS: TRACE ELEMENTS (5) 1 ML, MULTIVITAMIN INJ 10 ML in AMINO ACIDS/DEXT/LYTES 5-15% 2,000 ML IV SCH (17:14)
[2019-07-19] MEDS: DEXTROSE 5% LACTATED RINGERS 1,000 ML IV SCH (17:16)
[2019-07-19] MEDS: LORazepam 2 MG/1 ML VIAL IV PRN (23:21)
[2019-07-20 04:52] LABS: Basophils # 0.1 10*3/uL (0.0-0.2); Basophils % 0.7 % (0.0-0.8); Eosinophils # 0.5 10*3/uL (0.0-0.87); Hematocrit 33.2 VOL% (35.7-47.0); Hemoglobin 10.2 GM/DL (12.0-16.0); Immature Granulocytes % 1.5 %; Lymphocytes # 1.5 10*3/uL (1.4-4.0); Lymphocytes % 22.9 % (21.3-54.2); Mean Corpuscular HGB Conc 30.7 GM/DL (32-36); Mean Corpuscular Volume 100.9 FL (87-102); Mean Platelet Volume 9.5 FL (9.6-12.0); Monocytes % 6.7 % (1.7-12.7); Neutrophils % 61.2 % (38.7-73.9); Platelet Count 188 T/CUMM (130-400); Red Blood Count 3.29 MC/CUMM (3.8-5.5); Red Cell Distribution Width 15.9 % (9.3-17.3); White Blood Count 6.7 T/CUMM (4-12)
[2019-07-20 05:29] LABS: Calcium 7.9 MG/DL (8.5-10.1); Osmolality,Calculated 279.7 MOS/KG (273-304)
[2019-07-20] MEDS: INSULIN REGULAR 100 UNIT/ML SUBCUT SCH ×3 (06:11→17:33)
[2019-07-20] MEDS: LEVOTHYROXINE 125 MCG TABLET PO SCH (06:16)
[2019-07-20] MEDS: HEPARIN 5,000 UNIT/1 ML VIAL SUBCUT SCH ×3 (06:16→21:48)
[2019-07-20] MEDS: DEXTROSE 5% LACTATED RINGERS 1,000 ML IV SCH ×2 (08:11→08:12)
[2019-07-20] MEDS: PIPERACILLIN/TAZOBACTAM 3,375 MG in SODIUM CHLORIDE 0.9% 100 ML IV SCH ×2 (08:56→17:32)
[2019-07-20] MEDS: CALCIUM (CITRATE)/VITAMIN D 200 MG-125 UNIT TABLET PO SCH (08:57)
[2019-07-20] MEDS: FERROUS SULFATE 325 MG TABLET PO SCH ×3 (08:57→21:38)
[2019-07-20] MEDS: CITALOPRAM 40 MG TABLET PO SCH (08:57)
[2019-07-20] MEDS: PANTOPRAZOLE 40 MG TABLET PO SCH (08:57)
[2019-07-20] MEDS: ASPIRIN EC 81 MG TABLET PO SCH (08:57)
[2019-07-20] MEDS: tiZANidine 4 MG TABLET PO SCH ×2 (08:57→21:38)
[2019-07-20] MEDS: ASCORBIC ACID 500 MG TABLET PO SCH (08:58)
[2019-07-20] MEDS: GABAPENTIN 600 MG TABLET PO SCH ×2 (08:58→21:39)
[2019-07-20] MEDS: ONDANSETRON 4 MG/2 ML VIAL IV PRN (16:18)
[2019-07-20] MEDS: TRACE ELEMENTS (5) 1 ML, MULTIVITAMIN INJ 10 ML in AMINO ACIDS/DEXT/LYTES 5-15% 2,000 ML IV SCH (17:32)
[2019-07-21] MEDS: PIPERACILLIN/TAZOBACTAM 3,375 MG in SODIUM CHLORIDE 0.9% 100 ML IV SCH ×3 (00:28→17:25)
[2019-07-21] MEDS: DEXTROSE 5% LACTATED RINGERS 1,000 ML IV SCH ×3 (03:17→17:57)
[2019-07-21] MEDS: INSULIN REGULAR 100 UNIT/ML SUBCUT SCH ×4 (03:17→17:57)
[2019-07-21] MEDS: HEPARIN 5,000 UNIT/1 ML VIAL SUBCUT SCH ×3 (05:29→23:23)
[2019-07-21] MEDS: LEVOTHYROXINE 125 MCG TABLET PO SCH (05:31)
[2019-07-21 06:06] LABS: Basophils # 0.1 10*3/uL (0.0-0.2); Basophils % 0.8 % (0.0-0.8); Eosinophils # 0.5 10*3/uL (0.0-0.87); Eosinophils % 7.5 % (0.00-10.9); Hematocrit 32.6 VOL% (35.7-47.0); Hemoglobin 9.8 GM/DL (12.0-16.0); Immature Granulocytes % 1.9 %; Immature Granulocytes Absolute 0.12 #; Lymphocytes # 1.5 10*3/uL (1.4-4.0); Mean Corpuscular HGB Conc 30.1 GM/DL (32-36); Mean Corpuscular Volume 105.2 FL (87-102); Mean Platelet Volume 9.8 FL (9.6-12.0); Monocytes % 7.4 % (1.7-12.7); Neutrophils % 58.4 % (38.7-73.9); Platelet Count 176 T/CUMM (130-400); Red Cell Distribution Width 15.9 % (9.3-17.3); White Blood Count 6.4 T/CUMM (4-12)
[2019-07-21 06:47] LABS: Calcium 7.9 MG/DL (8.5-10.1)
[2019-07-21] MEDS: CALCIUM (CITRATE)/VITAMIN D 200 MG-125 UNIT TABLET PO SCH (10:39)
[2019-07-21] MEDS: tiZANidine 4 MG TABLET PO SCH ×2 (10:40→20:57)
[2019-07-21] MEDS: CITALOPRAM 40 MG TABLET PO SCH (10:40)
[2019-07-21] MEDS: ASCORBIC ACID 500 MG TABLET PO SCH (10:40)
[2019-07-21] MEDS: FERROUS SULFATE 325 MG TABLET PO SCH ×3 (10:40→20:57)
[2019-07-21] MEDS: PANTOPRAZOLE 40 MG TABLET PO SCH (10:40)
[2019-07-21] MEDS: GABAPENTIN 600 MG TABLET PO SCH ×2 (10:40→20:57)
[2019-07-21] MEDS: ASPIRIN EC 81 MG TABLET PO SCH (10:40)
[2019-07-21] MEDS: ONDANSETRON 4 MG/2 ML VIAL IV PRN (13:26)
[2019-07-21] MEDS: TRACE ELEMENTS (5) 1 ML, MULTIVITAMIN INJ 10 ML in AMINO ACIDS/DEXT/LYTES 5-15% 2,000 ML IV SCH (17:26)
[2019-07-21] MEDS: ACETAMINOPHEN 325 MG TABLET PO PRN (20:58)
[2019-07-22] MEDS: PIPERACILLIN/TAZOBACTAM 3,375 MG in SODIUM CHLORIDE 0.9% 100 ML IV SCH ×3 (01:11→20:11)
[2019-07-22] MEDS: INSULIN REGULAR 100 UNIT/ML SUBCUT SCH ×4 (01:40→18:41)
[2019-07-22 05:09] LABS: Basophils # 0.1 10*3/uL (0.0-0.2); Basophils % 1.1 % (0.0-0.8); Eosinophils # 0.3 10*3/uL (0.0-0.87); Eosinophils % 6.9 % (0.00-10.9); Hematocrit 32.4 VOL% (35.7-47.0); Hemoglobin 9.7 GM/DL (12.0-16.0); Immature Granulocytes % 2.2 %; Lymphocytes # 1.3 10*3/uL (1.4-4.0); Lymphocytes % 27.2 % (21.3-54.2); Mean Corpuscular HGB Conc 29.9 GM/DL (32-36); Mean Corpuscular Volume 104.2 FL (87-102); Mean Platelet Volume 9.6 FL (9.6-12.0); Monocytes % 7.3 % (1.7-12.7); Neutrophils % 55.3 % (38.7-73.9); Platelet Count 155 T/CUMM (130-400); Red Blood Count 3.11 MC/CUMM (3.8-5.5); Red Cell Distribution Width 15.9 % (9.3-17.3); White Blood Count 4.6 T/CUMM (4-12)
[2019-07-22 05:34] LABS: Calcium 8.4 MG/DL (8.5-10.1); Osmolality,Calculated 278.7 MOS/KG (273-304)
[2019-07-22] MEDS: ACETAMINOPHEN 325 MG TABLET PO PRN (05:59)
[2019-07-22] MEDS: LEVOTHYROXINE 125 MCG TABLET PO SCH (05:59)
[2019-07-22] MEDS: HEPARIN 5,000 UNIT/1 ML VIAL SUBCUT SCH ×3 (06:02→21:27)
[2019-07-22] MEDS: DEXTROSE 5% LACTATED RINGERS 1,000 ML IV SCH ×2 (08:00→20:10)
[2019-07-22] MEDS: LORazepam 2 MG/1 ML VIAL IV PRN (08:17)
[2019-07-22] MEDS: CITALOPRAM 40 MG TABLET PO SCH (10:42)
[2019-07-22] MEDS: CALCIUM (CITRATE)/VITAMIN D 200 MG-125 UNIT TABLET PO SCH (10:42)
[2019-07-22] MEDS: PANTOPRAZOLE 40 MG TABLET PO SCH (10:43)
[2019-07-22] MEDS: ASPIRIN EC 81 MG TABLET PO SCH (10:43)
[2019-07-22] MEDS: ASCORBIC ACID 500 MG TABLET PO SCH (10:43)
[2019-07-22] MEDS: GABAPENTIN 600 MG TABLET PO SCH ×2 (10:44→20:09)
[2019-07-22] MEDS: FERROUS SULFATE 325 MG TABLET PO SCH ×3 (10:44→20:10)
[2019-07-22] MEDS: tiZANidine 4 MG TABLET PO SCH ×2 (10:44→20:09)
[2019-07-22] MEDS: TRACE ELEMENTS (5) 1 ML, MULTIVITAMIN INJ 10 ML in AMINO ACIDS/DEXT/LYTES 5-15% 2,000 ML IV SCH (17:58)
[2019-07-23] MEDS: INSULIN REGULAR 100 UNIT/ML SUBCUT SCH ×4 (00:58→19:06)
[2019-07-23] MEDS: PIPERACILLIN/TAZOBACTAM 3,375 MG in SODIUM CHLORIDE 0.9% 100 ML IV SCH ×3 (02:59→19:27)
[2019-07-23] MEDS: LEVOTHYROXINE 125 MCG TABLET PO SCH (05:37)
[2019-07-23] MEDS: HEPARIN 5,000 UNIT/1 ML VIAL SUBCUT SCH ×3 (05:38→20:59)
[2019-07-23 07:10] LABS: Basophils % 0.5 % (0.0-0.8); Eosinophils # 0.3 10*3/uL (0.0-0.87); Eosinophils % 4.8 % (0.00-10.9); Hematocrit 30.5 VOL% (35.7-47.0); Hemoglobin 9.3 GM/DL (12.0-16.0); Immature Granulocytes Absolute 0.12 #; Lymphocytes # 1.4 10*3/uL (1.4-4.0); Lymphocytes % 23.3 % (21.3-54.2); Mean Corpuscular HGB Conc 30.5 GM/DL (32-36); Mean Corpuscular Volume 103.4 FL (87-102); Mean Platelet Volume 9.8 FL (9.6-12.0); Monocytes % 7.8 % (1.7-12.7); Neutrophils % 61.6 % (38.7-73.9); Platelet Count 136 T/CUMM (130-400); Red Blood Count 2.95 MC/CUMM (3.8-5.5); Red Cell Distribution Width 15.9 % (9.3-17.3)
[2019-07-23 07:34] LABS: Calcium 8.3 MG/DL (8.5-10.1)
[2019-07-23] MEDS: ASPIRIN EC 81 MG TABLET PO SCH (09:36)
[2019-07-23] MEDS: FERROUS SULFATE 325 MG TABLET PO SCH ×3 (09:36→20:54)
[2019-07-23] MEDS: GABAPENTIN 600 MG TABLET PO SCH ×2 (09:36→20:54)
[2019-07-23] MEDS: PANTOPRAZOLE 40 MG TABLET PO SCH (09:36)
[2019-07-23] MEDS: CITALOPRAM 40 MG TABLET PO SCH (09:36)
[2019-07-23] MEDS: ASCORBIC ACID 500 MG TABLET PO SCH (09:36)
[2019-07-23] MEDS: tiZANidine 4 MG TABLET PO SCH ×2 (09:36→20:55)
[2019-07-23] MEDS: CALCIUM (CITRATE)/VITAMIN D 200 MG-125 UNIT TABLET PO SCH (09:45)
[2019-07-23] MEDS: TRACE ELEMENTS (5) 1 ML, MULTIVITAMIN INJ 10 ML in AMINO ACIDS/DEXT/LYTES 5-15% 2,000 ML IV SCH (18:52)
[2019-07-24] MEDS: DEXTROSE 5% LACTATED RINGERS 1,000 ML IV SCH (01:15)
[2019-07-24] MEDS: INSULIN REGULAR 100 UNIT/ML SUBCUT SCH ×4 (01:44→18:46)
[2019-07-24] MEDS: LORazepam 2 MG/1 ML VIAL IV PRN (02:20)
[2019-07-24] MEDS: PIPERACILLIN/TAZOBACTAM 3,375 MG in SODIUM CHLORIDE 0.9% 100 ML IV SCH ×3 (02:35→18:15)
[2019-07-24] MEDS: LEVOTHYROXINE 125 MCG TABLET PO SCH (06:15)
[2019-07-24] MEDS: HEPARIN 5,000 UNIT/1 ML VIAL SUBCUT SCH ×3 (06:15→21:19)
[2019-07-24] MEDS: ASPIRIN EC 81 MG TABLET PO SCH (09:43)
[2019-07-24] MEDS: ASCORBIC ACID 500 MG TABLET PO SCH (09:43)
[2019-07-24] MEDS: FERROUS SULFATE 325 MG TABLET PO SCH ×3 (09:44→20:08)
[2019-07-24] MEDS: GABAPENTIN 600 MG TABLET PO SCH ×2 (09:44→20:08)
[2019-07-24] MEDS: CITALOPRAM 40 MG TABLET PO SCH (09:44)
[2019-07-24] MEDS: tiZANidine 4 MG TABLET PO SCH ×2 (09:44→20:09)
[2019-07-24] MEDS: CALCIUM (CITRATE)/VITAMIN D 200 MG-125 UNIT TABLET PO SCH (09:44)
[2019-07-24] MEDS: PANTOPRAZOLE 40 MG TABLET PO SCH (09:45)
[2019-07-24] MEDS: TRACE ELEMENTS (5) 1 ML, MULTIVITAMIN INJ 10 ML in AMINO ACIDS/DEXT/LYTES 5-15% 2,000 ML IV SCH (17:13)
[2019-07-25] MEDS: ACETAMINOPHEN 325 MG TABLET PO PRN ×2 (00:50→17:27)
[2019-07-25] MEDS: INSULIN REGULAR 100 UNIT/ML SUBCUT SCH ×4 (00:51→17:31)
[2019-07-25] MEDS: PIPERACILLIN/TAZOBACTAM 3,375 MG in SODIUM CHLORIDE 0.9% 100 ML IV SCH ×3 (02:05→21:01)
[2019-07-25] MEDS: LORazepam 2 MG/1 ML VIAL IV PRN (02:05)
[2019-07-25 05:01] LABS: Basophils % 0.8 % (0.0-0.8); Eosinophils # 0.3 10*3/uL (0.0-0.87); Eosinophils % 4.8 % (0.00-10.9); Hematocrit 27.8 VOL% (35.7-47.0); Hemoglobin 8.6 GM/DL (12.0-16.0); Immature Granulocytes % 1.5 %; Immature Granulocytes Absolute 0.08 #; Lymphocytes # 1.6 10*3/uL (1.4-4.0); Lymphocytes % 30.1 % (21.3-54.2); Mean Corpuscular HGB Conc 30.9 GM/DL (32-36); Mean Corpuscular Volume 102.6 FL (87-102); Mean Platelet Volume 10.3 FL (9.6-12.0); Monocytes % 8.3 % (1.7-12.7); Neutrophils % 54.5 % (38.7-73.9); Platelet Count 136 T/CUMM (130-400); Red Blood Count 2.71 MC/CUMM (3.8-5.5); Red Cell Distribution Width 16.1 % (9.3-17.3); White Blood Count 5.2 T/CUMM (4-12)
[2019-07-25 05:22] LABS: Calcium 8.7 MG/DL (8.5-10.1); Osmolality,Calculated 274.2 MOS/KG (273-304)
[2019-07-25] MEDS: HEPARIN 5,000 UNIT/1 ML VIAL SUBCUT SCH ×3 (06:01→21:03)
[2019-07-25] MEDS: LEVOTHYROXINE 125 MCG TABLET PO SCH (06:02)
[2019-07-25] MEDS: ASCORBIC ACID 500 MG TABLET PO SCH (08:28)
[2019-07-25] MEDS: CITALOPRAM 40 MG TABLET PO SCH (08:28)
[2019-07-25] MEDS: ASPIRIN EC 81 MG TABLET PO SCH (08:28)
[2019-07-25] MEDS: tiZANidine 4 MG TABLET PO SCH ×2 (08:29→21:01)
[2019-07-25] MEDS: FERROUS SULFATE 325 MG TABLET PO SCH ×3 (08:29→21:00)
[2019-07-25] MEDS: GABAPENTIN 600 MG TABLET PO SCH ×2 (08:29→20:59)
[2019-07-25] MEDS: PANTOPRAZOLE 40 MG TABLET PO SCH (08:29)
[2019-07-25] MEDS: CALCIUM (CITRATE)/VITAMIN D 200 MG-125 UNIT TABLET PO SCH (08:29)
[2019-07-25] MEDS: DEXTROSE 5% LACTATED RINGERS 1,000 ML IV SCH (12:51)
[2019-07-25] MEDS ORDERED: LORazepam 2 MG/1 ML VIAL IV PRN ×2 (13:01→14:11)
[2019-07-26] MEDS: INSULIN REGULAR 100 UNIT/ML SUBCUT SCH ×3 (03:08→12:23)
[2019-07-26] MEDS: ACETAMINOPHEN 325 MG TABLET PO PRN (03:11)
[2019-07-26] MEDS: PIPERACILLIN/TAZOBACTAM 3,375 MG in SODIUM CHLORIDE 0.9% 100 ML IV SCH ×2 (04:34→12:23)
[2019-07-26] MEDS: DEXTROSE 5% LACTATED RINGERS 1,000 ML IV SCH ×3 (04:38→15:39)
[2019-07-26 05:36] LABS: Basophils # 0.1 10*3/uL (0.0-0.2); Basophils % 0.9 % (0.0-0.8); Eosinophils # 0.3 10*3/uL (0.0-0.87); Hematocrit 28.5 VOL% (35.7-47.0); Hemoglobin 8.8 GM/DL (12.0-16.0); Immature Granulocytes % 1.1 %; Immature Granulocytes Absolute 0.07 #; Lymphocytes # 1.5 10*3/uL (1.4-4.0); Lymphocytes % 23.4 % (21.3-54.2); Mean Corpuscular HGB Conc 30.9 GM/DL (32-36); Mean Corpuscular Volume 102.2 FL (87-102); Mean Platelet Volume 10.4 FL (9.6-12.0); Monocytes % 7.4 % (1.7-12.7); Neutrophils % 63.2 % (38.7-73.9); Platelet Count 158 T/CUMM (130-400); Red Blood Count 2.79 MC/CUMM (3.8-5.5); Red Cell Distribution Width 16.3 % (9.3-17.3); White Blood Count 6.3 T/CUMM (4-12)
[2019-07-26 06:12] LABS: Calcium 8.5 MG/DL (8.5-10.1); Osmolality,Calculated 279.5 MOS/KG (273-304)
[2019-07-26] MEDS: LEVOTHYROXINE 125 MCG TABLET PO SCH (06:52)
[2019-07-26] MEDS: HEPARIN 5,000 UNIT/1 ML VIAL SUBCUT SCH ×2 (06:52→15:38)
[2019-07-26] MEDS: FERROUS SULFATE 325 MG TABLET PO SCH ×2 (09:07→15:39)
[2019-07-26] MEDS: CITALOPRAM 40 MG TABLET PO SCH (09:07)
[2019-07-26] MEDS: PANTOPRAZOLE 40 MG TABLET PO SCH (09:07)
[2019-07-26] MEDS: ASPIRIN EC 81 MG TABLET PO SCH (09:07)
[2019-07-26] MEDS: ASCORBIC ACID 500 MG TABLET PO SCH (09:07)
[2019-07-26] MEDS: CALCIUM (CITRATE)/VITAMIN D 200 MG-125 UNIT TABLET PO SCH (09:07)
[2019-07-26] MEDS: GABAPENTIN 600 MG TABLET PO SCH (09:07)
[2019-07-26] MEDS: tiZANidine 4 MG TABLET PO SCH (09:07)
[2019-07-26 15:46] VITALS: BP 106/66
[2019-08-11] MEDS ORDERED: CYANOCOBALAMIN 1000 MCG/1 ML VIAL IM SCH (09:00)
== END 2019-07-26 16:10 | disposition swing bed (61) | DRG 393 ==
LOC: N.ED 13:59 → N.EDINP 16:29 → N.ICU 16:46 → N.2E 07-17 14:16 → N.3E 07-18 10:04
PROVIDERS: ADMIT Surgery; ATTEND Surgery

== ENCOUNTER 2019-08-27 12:41 | Inpatient (IN) ==
[2019-08-27] MEDS ORDERED: SODIUM CHLORIDE 0.9% 1,000 ML IV STA ×2 (13:15→13:20)
[2019-08-27 13:32] LABS: Basophils # 0.1 10*3/uL (0.0-0.2); Basophils % 0.2 % (0.0-0.8); Eosinophils # 0.1 10*3/uL (0.0-0.87); Eosinophils % 0.4 % (0.00-10.9); Hematocrit 35.6 VOL% (35.7-47.0); Immature Granulocytes % 0.6 %; Immature Granulocytes Absolute 0.16 #; Lymphocytes # 2.7 10*3/uL (1.4-4.0); Lymphocytes % 10.7 % (21.3-54.2); Mean Corpuscular HGB Conc 30.9 GM/DL (32-36); Mean Corpuscular Volume 102.6 FL (87-102); Mean Platelet Volume 9.8 FL (9.6-12.0); Monocytes % 2.6 % (1.7-12.7); Neutrophils % 85.5 % (38.7-73.9); Platelet Count 301 T/CUMM (130-400); Red Blood Count 3.47 MC/CUMM (3.8-5.5); Red Cell Distribution Width 15.6 % (9.3-17.3); White Blood Count 25.6 T/CUMM (4-12)
[2019-08-27 13:37] LABS: INR 1.1; PT Patient Result 11.7 SECS (9.6-12.2); Partial Thromboplastin Time 32.3 SECS (20.8-36.0)
[2019-08-27 13:46] LABS: Albumin 1.7 G/DL (3.4-5.0); Bilirubin,Total 0.6 MG/DL (0.2-1.0); Osmolality,Calculated 291.4 MOS/KG (273-304); Total Protein 6.4 G/DL (6.4-8.3)
[2019-08-27] MEDS ORDERED: PIPERACILLIN/TAZOBACTAM 3,375 MG in SODIUM CHLORIDE 0.9% 100 ML IV STA (14:02)
[2019-08-27] MEDS: DOPamine 800 MG/250 ML PREMIX IV PRN (14:35)
[2019-08-27 14:41] LABS: Apearance,Urine CLOUDY (Clear); Bacteria,Urine Occasional /HPF (Few); Bilirubin,Urine Small mg/dL (Negative); Blood, Urine Negative (Negative); Glucose,Urine (UA) Negative (Negative); Hyaline Casts,Urine 10 /LPF (0-3); Ketones,Urine Negative (Negative); Mucus,Urine Occasional /LPF (Occasional); Nitrite,Urine Negative (Negative); Protein,Urine Negative; Squamous Epithelial Cell,Urine Few /HPF (0-10); Urine Color Amber (Yellow); Urine Specific Gravity 1.028 (1.001-1.035)
[2019-08-27 14:59] LABS: Acanthocytes 1+; Anisocytosis Slight; Eosinophils 2 % (0-10); Hypochromasia Slight; Lymphocytes 3 % (20-55); Segmented Neutrophils 93 % (50-85); Total Cells Counted 100
[2019-08-27] MEDS ORDERED: ERTAPENEM 1,000 MG in SODIUM CHLORIDE 0.9% 100 ML IV SCH (15:00)
[2019-08-27] MEDS ORDERED: ONDANSETRON 4 MG/2 ML VIAL ONE (16:15)
[2019-08-27] MEDS ORDERED: ONDANSETRON 4 MG/2 ML VIAL IV STA (16:36)
[2019-08-27] MEDS: SODIUM CHLORIDE 0.9% 1,000 ML IV SCH ×2 (17:12→23:44)
[2019-08-28 04:47] LABS: Basophils % 0.2 % (0.0-0.8); Eosinophils # 0.1 10*3/uL (0.0-0.87); Eosinophils % 0.3 % (0.00-10.9); Hematocrit 38.2 VOL% (35.7-47.0); Hemoglobin 11.5 GM/DL (12.0-16.0); Immature Granulocytes % 0.6 %; Immature Granulocytes Absolute 0.12 #; Lymphocytes # 1.8 10*3/uL (1.4-4.0); Lymphocytes % 9.6 % (21.3-54.2); Mean Corpuscular HGB Conc 30.1 GM/DL (32-36); Mean Corpuscular Volume 105.5 FL (87-102); Mean Platelet Volume 10.1 FL (9.6-12.0); Monocytes % 3.7 % (1.7-12.7); Neutrophils % 85.6 % (38.7-73.9); Platelet Count 293 T/CUMM (130-400); Red Blood Count 3.62 MC/CUMM (3.8-5.5); Red Cell Distribution Width 15.4 % (9.3-17.3); White Blood Count 19.1 T/CUMM (4-12)
[2019-08-28 05:20] LABS: Calcium 7.5 MG/DL (8.5-10.1); Osmolality,Calculated 294.7 MOS/KG (273-304)
[2019-08-28] MEDS: DOPamine 800 MG/250 ML PREMIX IV PRN ×2 (05:51→23:16)
[2019-08-28] MEDS: ONDANSETRON 4 MG/2 ML VIAL IV PRN ×2 (05:52→15:14)
[2019-08-28] MEDS: SODIUM CHLORIDE 0.9% 1,000 ML IV SCH ×3 (06:35→20:19)
[2019-08-28] MEDS ORDERED: METHYL SALICYLATE 60 ML BOTTLE TOP PRN (07:53)
[2019-08-28] MEDS ORDERED: BUPIVACAINE 0.25% /EPI 10 ML VIAL ONE (12:01)
[2019-08-28] MEDS ORDERED: LIDOCAINE 1%/EPI INJ 20 ML VIAL ONE (12:01)
[2019-08-28] MEDS ORDERED: propofoL 200 MG/20 ML VIAL IV ONE (14:06)
[2019-08-28] MEDS ORDERED: SODIUM CHLORIDE 0.9% 100 ML IV ONE (14:07)
[2019-08-28] MEDS ORDERED: ETOMIDATE 40 MG/20 ML VIAL IV ONE (14:07)
[2019-08-28] MEDS ORDERED: KETAMINE 500 MG/10 ML VIAL ONE (14:07)
[2019-08-28] MEDS: HYDROmorphone 2 MG/1 ML VIAL IV PRN (15:15)
[2019-08-28] MEDS: ERTAPENEM 500 MG in SODIUM CHLORIDE 0.9% 100 ML IV SCH (15:16)
[2019-08-29] MEDS: HYDROmorphone 2 MG/1 ML VIAL IV PRN ×2 (02:45→19:41)
[2019-08-29] MEDS: ONDANSETRON 4 MG/2 ML VIAL IV PRN ×2 (02:45→16:51)
[2019-08-29] MEDS: SODIUM CHLORIDE 0.9% 1,000 ML IV SCH ×3 (02:47→16:45)
[2019-08-29 04:58] LABS: Calcium 6.9 MG/DL (8.5-10.1); Osmolality,Calculated 300.7 MOS/KG (273-304)
[2019-08-29 06:39] LABS: Basophils % 0.3 % (0.0-0.8); Eosinophils # 0.2 10*3/uL (0.0-0.87); Eosinophils % 1.5 % (0.00-10.9); Hematocrit 29.1 VOL% (35.7-47.0); Immature Granulocytes % 1.4 %; Immature Granulocytes Absolute 0.16 #; Lymphocytes # 1.7 10*3/uL (1.4-4.0); Lymphocytes % 14.4 % (21.3-54.2); Mean Corpuscular HGB Conc 29.6 GM/DL (32-36); Mean Corpuscular Volume 108.2 FL (87-102); Mean Platelet Volume 9.4 FL (9.6-12.0); Monocytes % 4.4 % (1.7-12.7); Platelet Count 319 T/CUMM (130-400); Red Cell Distribution Width 15.8 % (9.3-17.3)
[2019-08-29 06:41] LABS: Hemoglobin 8.6 GM/DL (12.0-16.0); Red Blood Count 2.69 MC/CUMM (3.8-5.5); White Blood Count 11.8 T/CUMM (4-12)
[2019-08-29] MEDS: ERTAPENEM 500 MG in SODIUM CHLORIDE 0.9% 100 ML IV SCH (16:45)
[2019-08-29] MEDS: MENTHOL/ZINC OXIDE OINT 71 GM JAR TOP SCH ×2 (16:45→22:37)
[2019-08-30] MEDS: SODIUM CHLORIDE 0.9% 1,000 ML IV SCH ×2 (01:05→06:33)
[2019-08-30] MEDS: MENTHOL/ZINC OXIDE OINT 71 GM JAR TOP SCH ×2 (09:24→20:28)
[2019-08-30] MEDS ORDERED: ALBUTEROL 2.5 MG/3 ML NEB RESP TX PRN (11:54)
[2019-08-30] MEDS ORDERED: diphenhydrAMINE CAP 25 MG CAPSULE PO PRN (11:54)
[2019-08-30] MEDS: FERROUS GLUCONATE 324 MG TABLET PO SCH ×2 (15:05→20:31)
[2019-08-30] MEDS: ERTAPENEM 500 MG in SODIUM CHLORIDE 0.9% 100 ML IV SCH (15:06)
[2019-08-30] MEDS: ONDANSETRON 4 MG/2 ML VIAL IV PRN (16:20)
[2019-08-30] MEDS: oxyCODONE/ACETAMINOPHEN 5-325 MG TABLET PO PRN (18:51)
[2019-08-30] MEDS ORDERED: SODIUM CHLORIDE 0.9% 1,000 ML IV SCH (19:00)
[2019-08-31] MEDS: oxyCODONE/ACETAMINOPHEN 5-325 MG TABLET PO PRN (04:10)
[2019-08-31] MEDS ORDERED: LEVOTHYROXINE 125 MCG TABLET PO SCH (06:30)
[2019-08-31 08:10] LABS: Basophils % 0.6 % (0.0-0.8); Eosinophils # 0.2 10*3/uL (0.0-0.87); Eosinophils % 2.7 % (0.00-10.9); Hematocrit 29.8 VOL% (35.7-47.0); Hemoglobin 8.9 GM/DL (12.0-16.0); Immature Granulocytes % 1.7 %; Immature Granulocytes Absolute 0.12 #; Lymphocytes # 1.9 10*3/uL (1.4-4.0); Mean Corpuscular HGB Conc 29.9 GM/DL (32-36); Mean Corpuscular Volume 108.4 FL (87-102); Mean Platelet Volume 9.2 FL (9.6-12.0); Monocytes % 4.9 % (1.7-12.7); Neutrophils % 63.1 % (38.7-73.9); Platelet Count 327 T/CUMM (130-400); Red Blood Count 2.75 MC/CUMM (3.8-5.5); Red Cell Distribution Width 16.1 % (9.3-17.3); White Blood Count 7.1 T/CUMM (4-12)
[2019-08-31 08:23] LABS: Platelet Estimate Normal
[2019-08-31 08:24] LABS: Anisocytosis 1+; Macrocytosis 1+
[2019-08-31 08:30] LABS: Alanine Aminotransferase 26 U/L (13-56); Albumin 1.4 G/DL (3.4-5.0); Alkaline Phosphatase 128 U/L (45-117); Aspartate Amino Transferase 32 U/L (0-37); Bilirubin,Total < 0.39 MG/DL (0.2-1.0); Blood Urea Nitrogen 24 MG/DL (7-18); Calcium 7.1 MG/DL (8.5-10.1); Estimated Glom Filtration Rate 52 ML/MIN; Glucose 74 MG/DL (74-106); Osmolality,Calculated 290.7 MOS/KG (273-304)
[2019-08-31] MEDS: FERROUS GLUCONATE 324 MG TABLET PO SCH (08:52)
[2019-08-31] MEDS: MENTHOL/ZINC OXIDE OINT 71 GM JAR TOP SCH (08:53)
[2019-08-31] MEDS ORDERED: CITALOPRAM 40 MG TABLET PO SCH (09:00)
[2019-08-31] MEDS ORDERED: ASPIRIN EC 81 MG TABLET PO SCH (09:00)
[2019-08-31] MEDS ORDERED: ASCORBIC ACID 500 MG TABLET PO SCH (09:00)
[2019-08-31] MEDS ORDERED: MAGNESIUM HYDROXIDE SUSP 30 ML UDCUP PO PRN (10:45)
[2019-08-31] MEDS ORDERED: DOCUSATE SODIUM 100 MG CAPSULE PO SCH (11:00)
[2019-08-31 11:53] VITALS: BP 128/66
== END 2019-08-31 16:03 | disposition home or self-care (01) | DRG 853 ==
LOC: EDBD → EDUNIT# → N.ED 12:41 → N.EDINP 15:21 → SUATTDRO 15:21 → N.CC 16:20 → N.3E 08-30 11:46
PROVIDERS: ADMIT Internal Medicine; ATTEND Internal Medicine